=== PATIENT | male | born 1995 | race Caucasian/White ===

== ENCOUNTER 2018-10-05 10:41 | Emergency (ER) | payer OTHER ==
[~2018-10-05] VITALS: Ht 162.6 cm; Wt 54.5 kg
[2018-10-05 10:44] VITALS: Ht 162.6 cm; Wt 54.5 kg
[2018-10-05] MEDS ORDERED: EC-NAPROSYN500 MG PO (12:09)
[2018-10-05 12:33] VITALS: BP 122/60
== END 2018-10-05 12:34 | disposition home or self-care (01) ==
LOC: D.ER 10:41
DX: S06.0X0A Concussion without loss of consciousness, initial encounter (principal); Y04.2XXA Assault by strike against or bumped into by another person, initial encounter; Y93.89 Activity, other specified; Y92.89 Other specified places as the place of occurrence of the external cause; S00.83XA Contusion of other part of head, initial encounter; F17.200 Nicotine dependence, unspecified, uncomplicated